=== PATIENT | male | born 1970 | race Caucasian/White ===

== ENCOUNTER 2024-02-16 07:46 | Day surgery (SDC) | payer OTHER, MEDICAID ==
[2024-02-16 08:06] LABS: HEMATOCRIT 45.1 % (38.4-49.7); HEMOGLOBIN 15.7 g/dL (12.9-16.9); MEAN CORPUSCULAR HEMOGLOBIN 29.6 pg (31.6-35.5); MEAN CORPUSCULAR HGB CONC 34.8 g/dL (31.6-35.5); MEAN CORPUSCULAR VOLUME 85.1 fL (81.4-99.0); RED BLOOD CELL COUNT 5.3 M/uL (4.14-5.76); WHITE BLOOD CELL COUNT,WBC 6.6 K/uL (3.2-11.0)
[2024-02-16] MEDS ORDERED: Propofol 200 MG/20 ML SDV ONE (08:14)
[2024-02-16] MEDS ORDERED: fentaNYL 250 MCG/5 ML SDV ONE (08:14)
[2024-02-16] MEDS ORDERED: Midazolam 1 MG/ML 2 ML SDV ONE (08:14)
[2024-02-16] MEDS ORDERED: Bupivacaine 0.5% 30 ML SDV ONE (08:16)
[2024-02-16 08:26] LABS: A/G RATIO 1.1 (1.2-2.2); ALANINE AMINOTRANSFERASE,ALT 40 U/L (12-78); ALKALINE PHOSPHATASE 72 U/L (46-116); ANION GAP 9.2 mmol/L (5.0-14.0); ASPARTATE AMNIOTRANSFERASE,AST 19 U/L (15-37); BILIRUBIN TOTAL 0.7 mg/dL (0.2-1.0); BLOOD UREA NITROGEN,BUN 16 mg/dL (7-18); CARBON DIOXIDE,CO2 30 mmol/L (21-32); CHLORIDE,CL 101 mmol/L (100-108); CREATININE 1.1 mg/dL (0.8-1.3); EST CRCL DRUG DOSING (CG) 86.22 mL/min; ESTIMATED GFR 81 mL/min (>60); GLUCOSE RANDOM 107 mg/dL (74-106); POTASSIUM,K 3.7 mmol/L (3.6-5.2); PROTEIN TOTAL,TP 7.6 g/dL (6.4-8.2); SODIUM,NA 140 mmol/L (140-148)
[2024-02-16] MEDS: Lactated Ringers 1,000 ML IV SCH (08:51)
[2024-02-16] MEDS: Nozin Nasal Sanitizer NASBOTH ONE (08:52)
[2024-02-16] MEDS: ceFAZolin 2 GM in Premix Bag 1 BAG IV ONE (10:35)
[2024-02-16] MEDS ORDERED: Dexamethasone 4 MG/ML SDV ONE (11:08)
[2024-02-16] MEDS ORDERED: Ondansetron 4 MG/2 ML SDV ONE (11:08)
[2024-02-16] MEDS: Bupivacaine 0.5% 50 ML MDV ONE (11:36)
[2024-02-16] MEDS: Acetaminophen/oxyCODONE 325-5 MG Tab PO ONE (13:44)
== END 2024-02-16 14:15 | disposition home or self-care (01) ==
LOC: JP.SDS 07:46
PROVIDERS: ATTEND Specialist
DX: M75.121 Complete rotator cuff tear or rupture of right shoulder, not specified as traumatic (principal); M25.811 Other specified joint disorders, right shoulder; S43.401A Unspecified sprain of right shoulder joint, initial encounter; F17.200 Nicotine dependence, unspecified, uncomplicated; Z88.0 Allergy status to penicillin; X58.XXXA Exposure to other specified factors, initial encounter
CPT/HCPCS: 29826; 29827; 36415; 80053; 85027; 93005; A9270; C1713; J0665; J0690; J1100; J2250; J2405; J2704; J3010; J7120; 93010